=== PATIENT | male | born 1960 | race Caucasian/White ===

== ENCOUNTER 2019-06-30 13:00 | Outpatient (CLI) | payer OTHER, BC | END 2019-07-01 13:01 | disposition short-term general hospital (02) | LOC: EMS 13:00 | PROVIDERS: ATTEND Surgery | DX: M54.9 Dorsalgia, unspecified (principal); W18.30XA Fall on same level, unspecified, initial encounter; Y92.69 Other specified industrial and construction area as the place of occurrence of the external cause; Y99.0 Civilian activity done for income or pay | CPT/HCPCS: A0425; A0429 ==

== ENCOUNTER 2020-09-15 18:41 | Outpatient (CLI) | payer BC, OTHER | END 2020-09-15 18:42 | disposition left against medical advice (07) | LOC: EMS 18:41 | DX: R41.0 Disorientation, unspecified (principal) ==

== ENCOUNTER 2021-06-30 12:19 | Outpatient (CLI) | payer OTHER ==
[2021-06-30] MEDS ORDERED: ALBUTEROL 1 PUFF INH STA (15:41)
== END 2021-06-30 12:20 | disposition home or self-care (01) ==
LOC: RT 12:19
PROVIDERS: ATTEND Family Medicine
DX: R05.3 Chronic cough (principal)
CPT/HCPCS: 94060

== ENCOUNTER 2021-07-24 15:21 | Outpatient (CLI) | payer OTHER ==
--- NOTE | 2021-07-24 16:18 | SLEEP CARE CONSULTATION ---
Information from patient questionnaire entered by Radha Courtney MA. I have reviewed and concur with the information entered by Radha Courtney MA. This document represents the service I personally performed and the decisions made by , Tracie Delcid ARNP. History of Present Illness Service Date and Time: 07/24/2021 1521 Reason for Visit: New patient (ONSET 04/2000, ON CPAP, NEED CHIP, ), Previously diagnosed sleep apnea, sleep apnea on CPAP therapy Chief Complaint: reports: Other (Doc recommended I get my CPAP checked to ensure proper settings. ) Date of Onset: had CPAP since 2000 Usual bedtime: 10:30 pm Time it takes to fall asleep: 30-45 minutes Snores at night: No (not with CPAP) Observed to quit breathing while asleep: No (not with CPAP) Sleeps alone due to snoring: No (not with CPAP) Number of times waking at night: 3-4 Reasons for waking at night: reports: Bathroom, Other (unknown reason) Toss, Turn, or Twitch while sleeping: No (?) Recalls having dreams: Yes (sometimes) Usually gets out of bed at: 0700 Feels refreshed in the morning: Yes (most of the time) Morning headache: No Sleepy or fatigued during the day: No Ever fallen asleep while driving: No Takes day naps: No Dreams during day naps: No Prior sleep studies: Yes Year and Where: 2000 Dr. Ellen Penaloza Type of Sleep Study: Polysomnography Additional HPI information: KALLI SPENCER was previously diagnosed to have unknown, AHI unknown, sleep apnea- hypopnea syndrome and comes in today to establish care for CPAP therapy. He states his doctor told him after his last study that he had 48 episodes before he was started on the CPAP. He has been on a CPAP since 2000. - Parasomnia Symptoms Ever been unable to move upon waking from sleep: No Walks in sleep: No Talks in sleep: No Ever acted out dreams in sleep: No Ever felt weak in the knees when startled or emotional: No Bothered by creepy, crawly, restless sensations in legs: No Problems with memory or concentration: No CPAP Compliance Data - Data Reviewed with Patient Average duration of nightly device use: 8.24 hours Current pressure setting (cmH2O): 5-15 (8.5 avg pressure) Average residual AHI: 0.8 Average large leak: 1.1 Compliance data discussion: [facility] He has a Remstar Pramod CPAP that he received 12-20-2012. He is using a nasal mask. Subjective Patient concerns: denies: aerophagia, mask discomfort, air blowing in eyes, mask leak noise, condensation in mask/hose, nasal congestion, dry mouth, nose, throat, epistaxis, other Observed to snore while using device: No Current pressure setting perceived as: comfortable On therapy, patient: reports: sleeping better, awakening more refreshed, being more awake and alert during the day, more rested overall, other (He can't sleep without it). denies: drowsiness while driving Initial Deary Sleepiness Scale score: 6 Past Medical History Past Medical History: reports: Hypertension, Arthritis, Emphysema (COPD) Social History The patient's occupation is a RE. Patient is and lives in [place]. Have you smoked in the past 12 months: No Cigarettes per day (20/pack): 30 Years of smokin Quit date: 5251-5351 Smoking Pack Years: 30.0 Alcohol use: Yes Alcohol amount and frequency: 3-4 beers daily; just stopped 2 weeks ago for Keto diet Caffeine use: Yes Caffeine amount and frequency: 1-2 times a week, maybe Family History Family history of sleep disordered breathing: No Allergies and Home Medications Drug allergies reviewed: Yes (NKDA) Home medication list reviewed: Yes Allergy and home medication list: Allergies No Known Drug Allergies Allergy (Verified 06/25/13 17:39) Medications: Lisinopril Baby aspirin HCTZ CBD gummies for arthritis pain Review of Systems Weight gain over past 5 years: 20 Weight loss over past 5 years: 17 in last 2 weeks Cardiovascular: reports: high blood pressure Respiratory: reports: shortness of breath, other (COPD) Ear/Nose/Throat: reports: nose bleeds, tonsillectomy, wisdom teeth removed (bottom only) Musculoskeletal: reports: joint pain, back pain, other (toes are numb) Physical Exam Vital signs obtained and entered by: LICO MCGRATH Blood Pressure: 130/96 (RIGHT, RESP 18, ) Heart Rate: 86 O2 Saturation: 97 (PAPER) Height: 5 ft 10 in Weight: 269 lb 9.6 oz Weight change since last visit: LOSING , KETO DIET, LOST LBS, Body Mass Index: 38.7 BMI Classification: Obese Neck circumference: 19.5 (INCHES) Heart: regular rate and rhythm Lungs: clear bilaterally Impression and Plan 1. Obstructive Sleep Apnea-Hypopnea Syndrome, unknown (severe according to patient report), with good treatment compliance and excellent apnea control. On CPAP therapy, the patient has better sleep quality and is more rested overall. He states he cannot sleep without his CPAP. He has an old RemStar that is starting to have issues. Patient has already registered their device for the recall. If patient is not able to sleep due to waking up choking, gasping for air or other respiratory distress that they may decide to continue using it until it is either replaced or repaired. Since the patients current machine is at least 5 years old, the patient is opting to update their device with a device that is not on the recall. We need to obtain a copy of his last sleep study. We have a request in at [facility] at Dr. Hughes's office. He has also been using [facility] for his supplies who may have a copy. We will get a copy and then order a new CPAP device. If unable to obtain a copy I will order a sleep study to verify diagnosis. Patient voiced understanding and agreement with plan. Patient's apnea severity and rationale for treatment to reduce apnea, improve sleep quality and reduce cardiovascular and cerebrovascular events was reviewed. I also reviewed the benefit of consistent device use of CPAP for hypertension. * Continue auto CPAP pressure at 5-15 cmH2O * Update device once we get a copy of his Sleep study * Notify me if snoring with mask or feeling that the pressure is too much or too little * Attempt to lose weight * Call this office if any problems using CPAP * Return for follow up one month after obtaining new device, or sooner if concerns arise Counseling Topics: Spare mask, Weight loss health impact Visit Type: In Office Time Spent with Patient (minutes): 43 Provider Statement: I spent 100% of the Face to Face Visit with the patient with greater than 50% spent counseling the patient and coordination of care.
[2021-07-24 16:19] VITALS: BP 130/96
== END 2021-07-24 15:22 | disposition home or self-care (01) ==
LOC: SC 15:21
PROVIDERS: ATTEND Nurse Practitioner Family
DX: G47.33 Obstructive sleep apnea (adult) (pediatric) (principal); E66.9 Obesity, unspecified; Z68.38 Body mass index [BMI] 38.0-38.9, adult
CPT/HCPCS: 99203; 99212

== ENCOUNTER 2023-10-30 12:38 | Outpatient (CLI) | payer OTHER ==
--- NOTE | 2023-11-01 13:31 | MRI Report ---
PROCEDURE: Shoulder LT WO INDICATIONS: L SHOULDER PAIN TECHNIQUE: Noncontrast oblique coronal T2 fast spin echo with fat saturation, oblique sagittal T1 spin echo and T2 fast spin echo with fat saturation, axial T1 spin echo and T2 fast spin echo with fat saturation t hrough the shoulder. COMPARISON: None. FINDINGS: Image quality: Excellent. Rotator cuff: Low to moderate grade articular surface partial-thickness involving distal supraspinatu s at its insertion is seen. Distal infraspinatus and subscapularis tendinosis is also seen. No full-t hickness rotator cuff tendon rupture. Moderate supraspinatus muscle atrophy is seen on sagittal image s. Bones and bursae: Severe glenohumeral joint osteoarthritic changes are seen with near complete loss o f posterior joint space, extensive subchondral sclerosis and edema as well as prominent inferior aminta inal osteophyte formation. Moderate acromioclavicular joint osteophytic changes also seen with joint space narrowing and downward osteophyte formation depressing on musculotendinous junction of supraspi natus. No acute fracture or dislocation. Small to moderate amount of joint fluid and subacromial subd eltoid bursal fluid is seen. No gross loose bodies. Capsule and soft tissues: Global signal abnormality and fraying throughout superior, posterior and in ferior labrum is seen suggestive of extensive labral tear. The long head of the biceps tendon demonst rates normal location and morphology. The rotator interval appears normal, without fibrosis. The co racohumeral ligament is normal in thickness. IMPRESSION: 1. Severe glenohumeral joint osteoarthritis and moderate acromioclavicular joint osteoarthritis. No a cute fracture or dislocation. Moderate subacromial subdeltoid bursal fluid, no loose bodies. 2. Low to moderate grade articular surface partial-thickness tear involving distal supraspinatus exte nding to musculotendinous junction. Distal infraspinatus and subscapularis tendinosis. No full-thickn ess rotator cuff tendon rupture. Moderate supraspinatus muscle atrophy. 3. Global signal abnormality involving superior, posterior and inferior labrum suggestive of extensiv e labral tear. Reviewed by: Jean Claude Tucker MD on 11/01/2023 1:29 PM PDT Approved by: Jean Claude Tucker MD on 11/01/2023 1:29 PM PDT Station ID: [id number]
== END 2023-10-30 12:39 | disposition home or self-care (01) ==
LOC: DI 12:38
PROVIDERS: ATTEND Family Medicine
DX: M19.012 Primary osteoarthritis, left shoulder (principal); M75.112 Incomplete rotator cuff tear or rupture of left shoulder, not specified as traumatic; M75.52 Bursitis of left shoulder